=== PATIENT | female | born 1970 | race Caucasian/White ===

== ENCOUNTER 2020-06-06 22:53 | Emergency (ER) | payer OTHER ==
[~2020-06-06] VITALS: Ht 167.6 cm; Wt 113.6 kg
[~2020-06-06 22:53] MED LIST: AZITHROMYCIN250 MG PO; BCP TD; COMBIVENT INH14.7 GM IH; PHENERGAN W/CO120 ML PO
[2020-06-06 23:00] VITALS: TEMP 98.7
[2020-06-06 23:16] LABS: COLLECTION METHOD CLEAN CATCH
[2020-06-06 23:30] LABS: PH 6 (5-8); SQUAMOUS EPITHELIAL None Seen /hpf; URINE APPEARANCE Cloudy; URINE BACTERIA None Seen /hpf; URINE BILIRUBIN Negative (NEGATIVE); URINE BLOOD 3+ (NEGATIVE); URINE COLOR Red; URINE GLUCOSE Negative (NEGATIVE); URINE KETONE Negative (NEGATIVE); URINE LEUKOCYTE ESTERASE 2+ (NEGATIVE); URINE NITRATE Negative (NEGATIVE); URINE PROTEIN(semi-quant) 2+ (NEGATIVE); URINE RBC >50 /hpf; URINE UROBILINOGEN Negative (NEGATIVE)
[2020-06-06] MEDS ORDERED: BACTRIM DS 8001 TAB PO (23:51)
[2020-06-07 00:06] VITALS: BP 142/91; PULSE 68
== END 2020-06-07 00:09 | disposition home or self-care (01) ==
LOC: COL.ER 22:53
PROVIDERS: Nurse Practitioner Family
DX: N30.01 Acute cystitis with hematuria (principal); I10 Essential (primary) hypertension

== ENCOUNTER 2020-09-29 13:30 | Emergency (ER) | payer OTHER ==
[~2020-09-29] VITALS: Ht 167.6 cm; Wt 120.5 kg
[~2020-09-29 13:30] MED LIST changes: +BACTRIM DS 8001 TAB PO
[2020-09-29 13:39] VITALS: BP 137/81; TEMP 98.4
[2020-09-29 15:20] VITALS: PULSE 82
== END 2020-09-29 15:20 | disposition home or self-care (01) ==
LOC: COL.ER 13:30
DX: S00.33XA Contusion of nose, initial encounter (principal); I10 Essential (primary) hypertension; W01.198A Fall on same level from slipping, tripping and stumbling with subsequent striking against other object, initial encounter; Y92.096 Garden or yard of other non-institutional residence as the place of occurrence of the external cause

== ENCOUNTER → 2021-05-27 | Outpatient (CLI) | payer OTHER | LOC: COL.RAD 07:28 | DX: M25.562 Pain in left knee (principal); R60.0 Localized edema ==

== ENCOUNTER 2021-12-09 12:57 | Emergency (ER) | payer OTHER ==
[~2021-12-09] VITALS: Ht 167.6 cm; Wt 110.5 kg
[2021-12-09 13:22] VITALS: TEMP 98.1
[2021-12-09 13:32] LABS: COLLECTION METHOD CLEAN CATCH
[2021-12-09] MEDS ORDERED: HYDRODIURIL50 MG PO (13:38)
[2021-12-09 14:02] LABS: BASO % 0.3 % (0.0-2.0); EOS % 0.2 % (0.0-4.0); GRAN # 11.9 K/mm3 (1.4-6.5); GRAN % 79.2 % (42.2-75.2); HEMATOCRIT 42.8 % (37.0-47.0); HEMOGLOBIN 14.8 g/dl (12.5-16.0); LYMPH # 2.1 K/mm3 (1.2-3.4); LYMPH % 14.1 % (20.0-51.0); MEAN CELL VOLUME 85 fl (80.0-100.0); MEAN CORPUSCULAR HEMOGLOBIN 29 pg (27-31); MEAN CORPUSCULAR HGB CONC 35 g/dl (33.0-37.0); MEAN PLATELET VOLUME 9.2 fl (7.4-10.4); MONO # 0.9 K/mm3 (0.1-0.6); MONO % 5.9 % (1.7-9.3); PLATELET COUNT 319 K/mm3 (130-400); RED BLOOD COUNT 5.06 M/mm3 (4.10-5.30); REDCELL DISTRIBUTION WIDTH-CV 12.5 % (11.5-14.5)
[2021-12-09 14:15] LABS: PH 6 (5-8); SQUAMOUS EPITHELIAL 0-2 /hpf (0-10); URINE APPEARANCE Clear (CLEAR/HAZY); URINE BACTERIA Rare /hpf (NONE SEEN); URINE BILIRUBIN Negative (NEGATIVE); URINE BLOOD 3+ (NEGATIVE); URINE COLOR Amber (YELLOW); URINE GLUCOSE Negative (NEGATIVE); URINE KETONE Negative (NEGATIVE); URINE LEUKOCYTE ESTERASE 1+ (NEGATIVE); URINE NITRATE Positive (NEGATIVE); URINE PROTEIN(semi-quant) Negative (NEGATIVE)
[2021-12-09 14:21] LABS: ALBUMIN 3.7 gm/dL (3.5-5.0); CALCIUM 9.4 mg/dL (8.4-10.2); CREATININE, serum 0.74 mg/dL (0.57-1.11); TOTAL PROTEIN 7.9 gm/dL (6.2-8.1)
[2021-12-09 14:24] LABS: POTASSIUM 2.9 mmol/L (3.5-4.5)
[2021-12-09] MEDS ORDERED: VANTIN 200200 MG/TAB PO ×3 (14:45→15:30)
[2021-12-09] MEDS ORDERED: K-TAB20 PO ×3 (14:48→15:30)
[2021-12-09 15:27] VITALS: BP 135/91; PULSE 89
== END 2021-12-09 15:30 | disposition home or self-care (01) ==
LOC: COL.ER 12:57
PROVIDERS: Physician Assistant
DX: N12 Tubulo-interstitial nephritis, not specified as acute or chronic (principal); D72.829 Elevated white blood cell count, unspecified
CPT/HCPCS: J0696; J7030